=== PATIENT | male | born 1975 | race Caucasian/White ===

== ENCOUNTER 2020-02-16 23:04 | Inpatient (IN) ==
[2020-02-17] MEDS ORDERED: Naloxone 0.4 MG/ML INJ IVP PRN (03:41)
[2020-02-17] MEDS ORDERED: Acetaminophen 325 MG TABLET PO PRN (03:41)
[2020-02-17 05:02] LABS: Basophils % 0.3 %; Eosinophils # 0.2 K/mcL (0.0-0.6); Eosinophils % 1.7 %; Hematocrit 40.9 % (37.5-50.1); Hemoglobin 14.3 g/dL (12.9-16.9); Immature Granulocytes % 0.4 % (0-4); Lymphocytes % 16.7 %; Mean Corpuscular Hemoglobin 34.5 pg (28.0-33.3); Mean Corpuscular Volume 98.8 fL (83.0-100.0); Mean Platelet Volume 9.6 fL (9.4-12.4); Monocytes # 1.3 K/mcL (0.0-1.3); Monocytes % 10.6 %; Neutrophils # 8.4 K/mcL (1.6-8.9); Platelet Count 341 K/mcL (140-400); Red Blood Count 4.14 M/mcL (4.19-5.50); Red Cell Distribution Width 11.6 % (11.5-14.5); Segmented Neutrophils % 70.3 %
[2020-02-17] MEDS ORDERED: *HR* LORazepam 2 MG/ML VIAL IVP PRN ×3 (05:18)
[2020-02-17 05:21] LABS: BUN/Creatinine Ratio 17 (6-26); Blood Urea Nitrogen 9 mg/dL (6-20); Calcium 9.4 mg/dL (8.6-10.3); Carbon Dioxide 24 mEq/L (23-29); Chloride 96 mEq/L (98-107); Glucose 168 mg/dL (70-105); Magnesium 1.9 mg/dL (1.6-2.6); Osmolality,Calculated 271 (280-300); Sodium 129 mEq/L (136-145); eGFR For African Americans > 60 (> 60); eGFR For Non-African Americans > 60 (> 60)
[2020-02-17] MEDS: levoFLOXacin 750 MG/150 ML 750 MG/150 ML BAG IVPB SCH (08:50)
[2020-02-17] MEDS: Nicotine 14 MG PATCH.TD24 TD SCH (08:50)
[2020-02-17] MEDS: Folic Acid 1 MG TABLET PO SCH (08:50)
[2020-02-17] MEDS: Thiamine (B-1) 100 MG TABLET PO SCH (08:50)
[2020-02-17] MEDS: Vitamin B Complex/Vit C/Vit E 1 EACH TABLET PO SCH (08:50)
[2020-02-17 13:39] LABS: RBC,Pleural Fluid < 2000 RBC/mcL
[2020-02-17 13:58] LABS: Total Protein,Pleural Fluid 5.1 g/dL
[2020-02-17] MEDS: *HR* Heparin 5,000 UNIT/ML VIAL SQ SCH ×2 (14:07→21:28)
[2020-02-17 14:32] LABS: Appearance of Pleural Fl Clear (Clear); Basophils,Pleural Fluid 0 %
[2020-02-18 04:32] LABS: Hematocrit 41.1 % (37.5-50.1); Hemoglobin 14.1 g/dL (12.9-16.9); Mean Corpuscular HGB Conc 34.3 g/dL (31.6-35.5); Mean Platelet Volume 9.6 fL (9.4-12.4); Platelet Count 306 K/mcL (140-400); Red Blood Count 4.15 M/mcL (4.19-5.50); Red Cell Distribution Width 11.4 % (11.5-14.5); White Blood Count 9.6 K/mcL (4.3-11.1)
[2020-02-18] MEDS: *HR* Heparin 5,000 UNIT/ML VIAL SQ SCH ×3 (04:32→20:53)
[2020-02-18 04:50] LABS: BUN/Creatinine Ratio 14 (6-26); Blood Urea Nitrogen 8 mg/dL (6-20); Calcium 9.3 mg/dL (8.6-10.3); Carbon Dioxide 26 mEq/L (23-29); Chloride 94 mEq/L (98-107); Glucose 113 mg/dL (70-105); Osmolality,Calculated 265 (280-300); Potassium 3.6 mEq/L (3.5-5.1); Sodium 128 mEq/L (136-145); eGFR For African Americans > 60 (> 60); eGFR For Non-African Americans > 60 (> 60)
[2020-02-18] MEDS: Thiamine (B-1) 100 MG TABLET PO SCH (09:46)
[2020-02-18] MEDS: levoFLOXacin 750 MG/150 ML 750 MG/150 ML BAG IVPB SCH (09:46)
[2020-02-18] MEDS: Folic Acid 1 MG TABLET PO SCH (09:46)
[2020-02-18] MEDS: Vitamin B Complex/Vit C/Vit E 1 EACH TABLET PO SCH (09:46)
[2020-02-18] MEDS: Nicotine 14 MG PATCH.TD24 TD SCH (10:06)
[2020-02-18] MEDS ORDERED: *HR* HYDROmorphone PF 0.5 MG/0.5 ML SYRINGE IVP PRN (15:59)
[2020-02-18] MEDS ORDERED: *HR* OxyCODONE Immed Rel 5 MG TABLET PO PRN (15:59)
[2020-02-19 02:43] LABS: Hematocrit 38.6 % (37.5-50.1); Mean Corpuscular HGB Conc 33.7 g/dL (31.6-35.5); Mean Corpuscular Hemoglobin 33.6 pg (28.0-33.3); Mean Corpuscular Volume 99.7 fL (83.0-100.0); Mean Platelet Volume 9.3 fL (9.4-12.4); Platelet Count 314 K/mcL (140-400); Red Blood Count 3.87 M/mcL (4.19-5.50); Red Cell Distribution Width 11.5 % (11.5-14.5); White Blood Count 9.7 K/mcL (4.3-11.1)
[2020-02-19 03:04] LABS: BUN/Creatinine Ratio 14 (6-26); Blood Urea Nitrogen 9 mg/dL (6-20); Calcium 9.4 mg/dL (8.6-10.3); Carbon Dioxide 29 mEq/L (23-29); Chloride 95 mEq/L (98-107); Glucose 102 mg/dL (70-105); Osmolality,Calculated 271 (280-300); Potassium 3.9 mEq/L (3.5-5.1); Sodium 131 mEq/L (136-145); eGFR For African Americans > 60 (> 60); eGFR For Non-African Americans > 60 (> 60)
[2020-02-19] MEDS: *HR* Heparin 5,000 UNIT/ML VIAL SQ SCH ×2 (07:13→14:12)
[2020-02-19] MEDS ORDERED: *HR* Succinylcholine 200 MG/10 ML VIAL IVP ONE (07:35)
[2020-02-19] MEDS ORDERED: *HR* Midazolam HCl 2 MG/2 ML VIAL ONE (07:35)
[2020-02-19] MEDS ORDERED: *HR* FentaNYL (PF) 100 MCG/2 ML VIAL ONE (07:35)
[2020-02-19] MEDS ORDERED: *HR* Propofol 200 MG/20 ML VIAL IVP ONE (07:35)
[2020-02-19] MEDS ORDERED: Lidocaine -MPF 4% 5 ML AMPUL ONE (07:37)
[2020-02-19] MEDS ORDERED: Dexamethasone 4 MG/ML VIAL ONE (08:01)
[2020-02-19] MEDS ORDERED: Lidocaine -MPF 2% 2 ML VIAL ONE (08:01)
[2020-02-19] MEDS ORDERED: Ondansetron 4 MG/2 ML VIAL ONE (08:01)
[2020-02-19] MEDS: Nicotine 14 MG PATCH.TD24 TD SCH (10:04)
[2020-02-19] MEDS: Vitamin B Complex/Vit C/Vit E 1 EACH TABLET PO SCH (10:09)
[2020-02-19] MEDS: Folic Acid 1 MG TABLET PO SCH (10:09)
[2020-02-19] MEDS: Thiamine (B-1) 100 MG TABLET PO SCH (10:09)
[2020-02-19] MEDS: levoFLOXacin 750 MG/150 ML 750 MG/150 ML BAG IVPB SCH (10:48)
[2020-02-19 14:26] VITALS: BP 106/70
[2020-02-19 16:08] LABS: Fluid Source for Albumin PLEURAL
[2020-02-19 18:03] LABS: Appearance of Body Fluid Hazy (Clear); Source of Body Fluid RIGHT MIDDLE LOBE LU; Volume of Body Fluid 9 mL
[2020-02-21 07:59] LABS: Serine Protease-3 Antibody 3 AU/mL (0-19)
== END 2020-02-19 15:55 | disposition home or self-care (01) | DRG 163 ==
LOC: 3BNU → SUATTDRO 02-17 02:33
PROVIDERS: ADMIT Pharmacist; ATTEND Pharmacist